=== PATIENT | female | born 1955 | race Hispanic/Latino ===

== ENCOUNTER → 2018-07-28 | Outpatient (CLI) | payer OTHER, MEDICARE ==
[~2018-07-28] MED LIST: ASPI-555 PO; DULO60CA44 PO; DULO60CA63 PO; INSU10VI3 SQ; IOHEXOL-350 50ML VIAL IV ONE; LEVO250T2 PO; METF-446 PO; METO25 PO; ROSU10TA PO; TRAM50TA4 PO; TYL3 PO
== END | disposition home or self-care (01) ==
LOC: RAH 07:51
PROVIDERS: ATTEND Internal Medicine Cardiovascular Disease
DX: I65.21 Occlusion and stenosis of right carotid artery (principal)
CPT/HCPCS: 70498; Q9967

== ENCOUNTER → 2018-08-18 | Outpatient (CLI) | payer OTHER, MEDICARE ==
[~2018-08-18] MED LIST changes: -IOHEXOL-350 50ML VIAL IV ONE
== END | disposition home or self-care (01) ==
LOC: RAH 13:11
PROVIDERS: ATTEND Podiatrist
DX: E10.621 Type 1 diabetes mellitus with foot ulcer (principal); L03.115 Cellulitis of right lower limb; E10.51 Type 1 diabetes mellitus with diabetic peripheral angiopathy without gangrene; M20.41 Other hammer toe(s) (acquired), right foot
CPT/HCPCS: 93922

== ENCOUNTER 2022-02-12 21:46 | Emergency (ER) | payer MEDICARE, OTHER ==
[~2022-02-12] VITALS: Ht 154.9 cm; Wt 91.2 kg
[~2022-02-12 21:46] MED LIST changes: +ACET-3194 PO; +ASCO500T10 PO; +ASPI-1197 PO; -ASPI-555 PO; +ATOR40TA69 PO; +BISA5TAB12 PO; +CETI10TA57 PO; +CHOL500050 PO; +CLOT15CR23 TP; +DEXT1DRO OP; -DULO60CA44 PO; -DULO60CA63 PO; +DULO60CA64 PO; +ESTR1PAT84 TD; +FAMO20TA8 PO; +FERR-82 PO; +FOLI0.4T6 PO; +FURO20TA4 PO; +GABA-529 PO; +HYDR25SU38 RC; +INSLAN SQ; +INSREG SQ; +INSU100V3 IJ; -INSU10VI3 SQ; -LEVO250T2 PO; +MECL-160 PO; +MELA5TAB50 PO; -METF-446 PO; +METO-408 PO; -METO25 PO; +NYST100P2 MC; +ONDA-104 PO; +PANT40TA54 PO; +PRED5DRO25 OP; -ROSU10TA PO; +SEMA2PEN SQ; -TYL3 PO; +[UNRECOGNIZED DRUG - OTHER] PO
[2022-02-12 22:36] LABS: BASOPHILS % (AUTO) 0.3 % (0.0-5.0); EOSINOPHILS % (AUTO) 4.8 % (0.0-8.0); HEMATOCRIT 28.7 % (36-48); LYMPHOCYTES % (AUTO) 30.5 % (21.0-51.0); MEAN CORPUSCULAR HEMOGLOBIN 27.9 pg (27.0-33.0); MONOCYTES % (AUTO) 7.2 % (3.0-13.0); NEUTROPHILS % (AUTO) 56.9 % (40.0-77.0); PLATELET COUNT (AUTO) 312 K/uL (130-400); RED BLOOD CELL COUNT(AUTO) 3.19 MIL/uL (4.00-5.50); RED CELL DISTRIBUTION WIDTH 14.3 % (11.0-15.5); WHITE BLOOD COUNT (AUTO) 10.5 K/uL (4.8-10.8)
[2022-02-12 22:46] LABS: POTASSIUM 4.1 mmol/L (3.5-5.1)
[2022-02-12 23:06] LABS: CREATININE 1.4 mg/dL (0.5-1.5)
[2022-02-13 02:00] VITALS: BP 113/65
== END 2022-02-13 03:16 | disposition home or self-care (01) ==
LOC: EDH 21:46
DX: R07.89 Other chest pain (principal); M19.90 Unspecified osteoarthritis, unspecified site; Z88.1 Allergy status to other antibiotic agents; Z88.8 Allergy status to other drugs, medicaments and biological substances; Z79.899 Other long term (current) drug therapy; Z79.82 Long term (current) use of aspirin; Z98.890 Other specified postprocedural states
CPT/HCPCS: 36415; 80048; 84484; 85025; 93005

== ENCOUNTER 2022-04-20 14:32 | Emergency (ER) | payer MEDICARE ==
[2022-04-20 14:57] LABS: BASOPHILS % (AUTO) 0.6 % (0.0-5.0); EOSINOPHILS % (AUTO) 4.8 % (0.0-8.0); HEMATOCRIT 31.1 % (36-48); LYMPHOCYTES % (AUTO) 23.8 % (21.0-51.0); MEAN CORPUSCULAR HEMOGLOBIN 27.6 pg (27.0-33.0); MEAN CORPUSCULAR HGB CONC 31.5 g/dL (32.0-36.0); MEAN CORPUSCULAR VOLUME 87.6 fL (79-99); MONOCYTES % (AUTO) 6.8 % (3.0-13.0); NEUTROPHILS % (AUTO) 63.8 % (40.0-77.0); PLATELET COUNT (AUTO) 264 K/uL (130-400); RED BLOOD CELL COUNT(AUTO) 3.55 MIL/uL (4.00-5.50); RED CELL DISTRIBUTION WIDTH 14.2 % (11.0-15.5); WHITE BLOOD COUNT (AUTO) 10.2 K/uL (4.8-10.8)
[2022-04-20 15:00] VITALS: BP 128/71
[2022-04-20 15:07] LABS: CREATININE 1.4 mg/dL (0.5-1.5); POTASSIUM 3.8 mmol/L (3.5-5.1)
[2022-04-20 15:18] LABS: ALBUMIN 2.9 g/dL (3.5-5.0); TOTAL PROTEIN, SERUM 6.9 g/dL (6.0-8.3)
== END 2022-04-20 18:42 | disposition home or self-care (01) ==
LOC: EDH 14:32
DX: R00.2 Palpitations (principal); R07.89 Other chest pain; R06.02 Shortness of breath; I11.0 Hypertensive heart disease with heart failure; I50.9 Heart failure, unspecified; I25.10 Atherosclerotic heart disease of native coronary artery without angina pectoris; E11.9 Type 2 diabetes mellitus without complications; M19.90 Unspecified osteoarthritis, unspecified site; Z88.0 Allergy status to penicillin; Z88.1 Allergy status to other antibiotic agents; Z79.82 Long term (current) use of aspirin; Z79.899 Other long term (current) drug therapy; Z95.2 Presence of prosthetic heart valve
CPT/HCPCS: 36415; 71045; 80053; 84484; 85025; 93005

== ENCOUNTER 2022-05-14 08:11 | Day surgery (SDC) | payer MEDICARE ==
[2022-05-13 10:49] VITALS: BP 144/63
[2022-05-14] VITALS (9 sets, daily range): BP systolic 124–168; BP diastolic 43–71
[~2022-05-14 08:11] MED LIST changes: -ASCO500T10 PO; +BUSP5TAB3 PO; -CETI10TA57 PO; -CHOL500050 PO; -CLOT15CR23 TP; +DAPA10TA PO; -DEXT1DRO OP; +DICL20GE TP; +DOCU-116 PO; +DULO30CA52 PO; -DULO60CA64 PO; -ESTR1PAT84 TD; -FAMO20TA8 PO; -FERR-82 PO; +FERS325 PO; -FOLI0.4T6 PO; +FOLI0.8T2 PO; -FURO20TA4 PO; +FURO20TA6 PO; +GLUC1VIA3 IM; -HYDR25SU38 RC; -INSU100V3 IJ; +LACT10SO75 PO; +LORA10TA7 PO; +LOSA25TA41 PO; +MELA5CAP PO; -MELA5TAB50 PO; -METO-408 PO; +METO25TA6 PO; +MIDO5TAB4 PO; +NITR0.4T50 SL; -NYST100P2 MC; +NYST100P2 TP; +OMEP20CA12 PO; -ONDA-104 PO; +ONDA8TAB12 PO; -PANT40TA54 PO; +WHEA1POW2 PO; +[UNRECOGNIZED DRUG - CODE] OP; -[UNRECOGNIZED DRUG - OTHER] PO
[2022-05-14] MEDS ORDERED: 0.9%NACL 1000ML 1,000 ML IV ONE (10:14)
[2022-05-14] MEDS ORDERED: NITROGLYCERIN 50MG VIAL ONE (10:53)
[2022-05-14] MEDS ORDERED: LIDOCAINE HCL-MPF 2% 10ML AMP IJ ONE (10:53)
[2022-05-14] MEDS ORDERED: HEPARIN 10,000 UNIT/10ML (1,000 UNIT/ML) VIAL ONE (10:53)
[2022-05-14] MEDS ORDERED: MEPERIDINE-PF 25 MG/ML SYG ONE (10:54)
[2022-05-14] MEDS ORDERED: IOHEXOL 350 MG/ML 100ML INFUS..BTL IV ONE (10:54)
[2022-05-14] MEDS ORDERED: MIDAZOLAM HCL 1 MG/ML 2ML VIAL ONE (10:54)
[2022-05-14] MEDS ORDERED: SODIUM BICARB 50MEQ 50ML VIAL 50 ML ONE (11:31)
[2022-05-14] MEDS ORDERED: BUPIVACAINE/PF 0.25% 10ML VIAL IJ ONE ×2 (11:32→11:36)
[2022-05-14] MEDS ORDERED: GLUCAGON 1MG KIT 1 MG ML IM PRN (12:30)
[2022-05-14] MEDS ORDERED: DEXTROSE 50%-WATER 50 ML DISP.SYRIN IV PRN (12:30)
[2022-05-14] MEDS ORDERED: INSULIN HUMULIN R 100 UNIT/ML 3ML SQ SCH (16:30)
== END 2022-05-14 16:40 ==
LOC: DAH 08:11
PROVIDERS: ATTEND Internal Medicine Cardiovascular Disease
DX: I25.10 Atherosclerotic heart disease of native coronary artery without angina pectoris (principal); I35.0 Nonrheumatic aortic (valve) stenosis; I49.1 Atrial premature depolarization; E11.22 Type 2 diabetes mellitus with diabetic chronic kidney disease; I13.0 Hypertensive heart and chronic kidney disease with heart failure and stage 1 through stage 4 chronic kidney disease, or unspecified chronic kidney disease; N18.30 Chronic kidney disease, stage 3 unspecified; I50.22 Chronic systolic (congestive) heart failure; E78.5 Hyperlipidemia, unspecified; M06.9 Rheumatoid arthritis, unspecified; M19.90 Unspecified osteoarthritis, unspecified site; Z79.82 Long term (current) use of aspirin; Z79.01 Long term (current) use of anticoagulants; Z79.899 Other long term (current) drug therapy; Z79.4 Long term (current) use of insulin; Z90.49 Acquired absence of other specified parts of digestive tract; Z98.890 Other specified postprocedural states; Z88.0 Allergy status to penicillin
CPT/HCPCS: 71045; 93005; 93461; 82948 ×4; C1769 ×2; C1894 ×3; C1760; C1893; Q9965; J7030; J3490 ×4; J2250; J2175; J1644; A4215; A4222; A4221; A4663; A4216; A4606; A4223 ×3; 99156; 99157; Q9967

== ENCOUNTER → 2022-09-13 | Outpatient (CLI) | payer MEDICARE ==
[~2022-09-13] MED LIST changes: +BISA-151 PO; -BISA5TAB12 PO; -DICL20GE TP; -FOLI0.8T2 PO; +INSU100I43 SQ; -LACT10SO75 PO; -LOSA25TA41 PO; -MECL-160 PO; -MIDO5TAB4 PO; -NITR0.4T50 SL; -NYST100P2 TP; +OMEP-420 PO; -OMEP20CA12 PO; -ONDA8TAB12 PO; +POLY17PO4 PO; -SEMA2PEN SQ; +SIME80TA12 PO; -TRAM50TA4 PO; +[UNRECOGNIZED DRUG - CODE] IV
[2022-09-13 09:43] LABS: INR 0.93 (0.85-1.15); PROTHROMBIN TIME 9.9 SEC (9.6-11.6)
[2022-09-13 09:45] LABS: PARTIAL THROMBOPLASTIN TIME 26.5 SEC (26.3-35.5)
== END | disposition home or self-care (01) ==
LOC: LAB 08:56
PROVIDERS: ATTEND Internal Medicine Gastroenterology
DX: Z79.01 Long term (current) use of anticoagulants (principal); R19.5 Other fecal abnormalities
CPT/HCPCS: 36415; 85610; 85730

== ENCOUNTER 2022-09-21 10:38 | Day surgery (SDC) | payer MEDICARE ==
[2022-09-21] VITALS (7 sets, daily range): BP systolic 93–133; BP diastolic 58–67
[~2022-09-21 10:38] MED LIST changes: +0.9%NACL 1000ML 1,000 ML IV ONE; -GLUC1VIA3 IM; -[UNRECOGNIZED DRUG - CODE] OP
[2022-09-21] MEDS ORDERED: PROPOFOL 10 MG/ML 20ML VIAL IV ONE (13:05)
[2022-09-21 13:33] LABS: BASOPHILS % (AUTO) 0.5 % (0.0-5.0); EOSINOPHILS % (AUTO) 7.6 % (0.0-8.0); LYMPHOCYTES % (AUTO) 21.4 % (21.0-51.0); MEAN CORPUSCULAR HEMOGLOBIN 27.5 pg (27.0-33.0); MEAN CORPUSCULAR HGB CONC 30.4 g/dL (32.0-36.0); MEAN CORPUSCULAR VOLUME 90.6 fL (79-99); MONOCYTES % (AUTO) 6.6 % (3.0-13.0); NEUTROPHILS % (AUTO) 63.4 % (40.0-77.0); PLATELET COUNT (AUTO) 268 K/uL (130-400); RED BLOOD CELL COUNT(AUTO) 2.98 MIL/uL (4.00-5.50); RED CELL DISTRIBUTION WIDTH 17.7 % (11.0-15.5)
[2022-09-21 13:40] LABS: CREATININE 1.6 mg/dL (0.5-1.5); POTASSIUM 4.6 mmol/L (3.5-5.1)
[2022-09-21 13:41] LABS: INR 0.94 (0.85-1.15); PROTHROMBIN TIME 10.3 SEC (9.6-11.6)
[2022-09-21 13:42] LABS: PARTIAL THROMBOPLASTIN TIME 24.2 SEC (26.3-35.5)
== END 2022-09-21 14:54 | disposition home or self-care (01) ==
LOC: DAH 10:38
PROVIDERS: ATTEND Internal Medicine Gastroenterology
DX: R19.5 Other fecal abnormalities (principal); K29.00 Acute gastritis without bleeding; K29.50 Unspecified chronic gastritis without bleeding; K31.89 Other diseases of stomach and duodenum; K21.00 Gastro-esophageal reflux disease with esophagitis, without bleeding; K44.9 Diaphragmatic hernia without obstruction or gangrene; I25.10 Atherosclerotic heart disease of native coronary artery without angina pectoris; I12.9 Hypertensive chronic kidney disease with stage 1 through stage 4 chronic kidney disease, or unspecified chronic kidney disease; E11.22 Type 2 diabetes mellitus with diabetic chronic kidney disease; N18.9 Chronic kidney disease, unspecified; F32.A Depression, unspecified; E66.01 Morbid (severe) obesity due to excess calories; Z88.1 Allergy status to other antibiotic agents; Z88.8 Allergy status to other drugs, medicaments and biological substances; Z20.822 Contact with and (suspected) exposure to COVID-19; Z87.11 Personal history of peptic ulcer disease; Z79.899 Other long term (current) drug therapy; Z98.890 Other specified postprocedural states; Z79.01 Long term (current) use of anticoagulants; Z90.49 Acquired absence of other specified parts of digestive tract; Z87.891 Personal history of nicotine dependence; Z68.32 Body mass index [BMI] 32.0-32.9, adult
CPT/HCPCS: 87635; 86677; 80048; 85025; 85610; 85730; 36415; 88305; 88342; 43239; C9803; J7030 ×2; J2704; A4620; A4215 ×2; A4223; A4657; A7002; A4222; A4221; A4663; A4606

== ENCOUNTER 2022-10-07 13:58 | Emergency (ER) | payer MEDICARE ==
[~2022-10-07] VITALS: Ht 154.9 cm; Wt 75.7 kg
[~2022-10-07 13:58] MED LIST changes: -0.9%NACL 1000ML 1,000 ML IV ONE
[2022-10-07 16:30] LABS: BASOPHILS % (AUTO) 0.3 % (0.0-5.0); HEMATOCRIT 29.9 % (36-48); LYMPHOCYTES % (AUTO) 10.7 % (21.0-51.0); MEAN CORPUSCULAR HEMOGLOBIN 27.2 pg (27.0-33.0); MEAN CORPUSCULAR HGB CONC 30.1 g/dL (32.0-36.0); MEAN CORPUSCULAR VOLUME 90.3 fL (79-99); MONOCYTES % (AUTO) 5.1 % (3.0-13.0); NEUTROPHILS % (AUTO) 82.6 % (40.0-77.0); PLATELET COUNT (AUTO) 311 K/uL (130-400); RED BLOOD CELL COUNT(AUTO) 3.31 MIL/uL (4.00-5.50); WHITE BLOOD COUNT (AUTO) 11.5 K/uL (4.8-10.8)
[2022-10-07 16:42] LABS: CREATININE 1.4 mg/dL (0.5-1.5); POTASSIUM 4.5 mmol/L (3.5-5.1)
[2022-10-07 16:51] LABS: TOTAL PROTEIN, SERUM 7.2 g/dL (6.0-8.3)
[2022-10-07 19:15] VITALS: BP 163/69
== END 2022-10-07 20:16 | disposition home or self-care (01) ==
LOC: EDH 13:58
DX: D50.0 Iron deficiency anemia secondary to blood loss (chronic) (principal); K21.9 Gastro-esophageal reflux disease without esophagitis; I95.9 Hypotension, unspecified; I50.9 Heart failure, unspecified; E78.00 Pure hypercholesterolemia, unspecified; M19.90 Unspecified osteoarthritis, unspecified site; Z88.8 Allergy status to other drugs, medicaments and biological substances; Z79.899 Other long term (current) drug therapy
CPT/HCPCS: 36415; 71045; 80053; 84484; 85025; 93005

== ENCOUNTER 2022-12-09 14:34 | Emergency (ER) | payer MEDICARE ==
[~2022-12-09] VITALS: Ht 165.1 cm; Wt 83.9 kg
[2022-12-09] MEDS ORDERED: TRAM50TA4 PO (16:45)
[2022-12-09 16:56] VITALS: BP 146/58
[2022-12-09] MEDS ORDERED: TRAMADOL HCL 50 MG TABLET PO ONE (17:00)
== END 2022-12-09 18:01 | disposition home or self-care (01) ==
LOC: EDH 14:34
DX: S80.02XA Contusion of left knee, initial encounter (principal); E11.9 Type 2 diabetes mellitus without complications; E78.00 Pure hypercholesterolemia, unspecified; I11.0 Hypertensive heart disease with heart failure; F32.A Depression, unspecified; I25.10 Atherosclerotic heart disease of native coronary artery without angina pectoris; I50.9 Heart failure, unspecified; Z79.4 Long term (current) use of insulin; Z79.82 Long term (current) use of aspirin; Z79.84 Long term (current) use of oral hypoglycemic drugs; Z79.899 Other long term (current) drug therapy; Z88.0 Allergy status to penicillin; Z88.1 Allergy status to other antibiotic agents; Z95.2 Presence of prosthetic heart valve; X50.1XXA Overexertion from prolonged static or awkward postures, initial encounter; Y93.89 Activity, other specified; Y92.89 Other specified places as the place of occurrence of the external cause; Y99.8 Other external cause status
CPT/HCPCS: 73562